=== PATIENT | female | born 1960 | race Caucasian/White ===

== ENCOUNTER 2016-12-07 08:19 | Emergency (ER) | payer OTHER ==
[2016-12-07] MEDS ORDERED: ONDANSETRON 4 MG/2 ML VIAL IVP STA (08:45)
[2016-12-07] MEDS ORDERED: SODIUM CHLORIDE 0.9% 1,000 ML IV STA (08:45)
[2016-12-07] MEDS ORDERED: diphenhydrAMINE 50 MG/ML 1 ML VIAL IVP STA (08:45)
[2016-12-07] MEDS ORDERED: DICYCLOMINE 10 MG/ML 2 ML AMP IM STA (08:45)
[2016-12-07] MEDS ORDERED: ACETAMINOPHEN IV (For NPO) 1,000 MG in EMPTY BAG 1 BAG IVPB ONE (08:45)
[2016-12-07] MEDS ORDERED: RX INFO: IV CONTRAST WAS GIVEN 1 EACH MISC MISCELLANE PRN (08:48)
--- NOTE | 2016-12-07 08:48 | ED ---
General Adult HPI - General Chief complaint: Nausea/Vomiting/Diarrhea Stated complaint: NVD Time Seen by Provider: 12/07/16 08:40 Source: patient, RN notes reviewed Mode of arrival: ambulatory Limitations: no limitations - History of Present Illness Initial comments: 56-year-old female presents to the emergency department with a chief complaint of nausea vomiting and diarrhea. Patient states it started about 8:00 tonight. Patient states that she has had a low-grade fever with it about 100.4 home so she was concerned. Patient states she continues to have nausea vomiting diarrhea and every time she tries to eat or drink anything it just seems to get worse. Patient does admit to some right-sided abdominal pain with this. Patient states that no one else has similar symptoms. Patient states she did eat a salad with chicken last night she does not know if that is what is contributing to it. Patient states she was concerned due to her continued nausea vomiting diarrhea. She thought that she was reevaluated.Patient denies any recent shortness of breath, chest pain, back pain, numbness or tingling, dysuria or hematuria, constipation, headaches or visual changes, or any other current symptoms. - Related Data Previous Rx's Medication Instructions Recorded Dicyclomine [Bentyl] 10 mg PO TID #20 capsule 12/07/16 Ondansetron Odt [Zofran ODT] 4 mg PO Q8HR PRN #20 tab 12/07/16 Allergies Allergy/AdvReac Type Severity Reaction Status Date / Time iodine Allergy Unknown Verified 12/07/16 09:02 diphenhydramine AdvReac Unknown Verified 12/07/16 09:03 [From Benadryl] Review of Systems ROS Statement: Those systems with pertinent positive or pertinent negative responses have been documented in the HPI. ROS Other: All systems not noted in ROS Statement are negative. Past Medical History Additional Past Medical History / Comment(s): endocarditis History of Any Multi-Drug Resistant Organisms: None Reported Past Surgical History: Cholecystectomy Past Psychological History: No Psychological Hx Reported Smoking Status: Never smoker Past Alcohol Use History: Occasional Past Drug Use History: None Reported General Exam - General Exam Comments Initial Comments: General: The patient is awake and alert, in no distress, and does not appear acutely ill. Eye: Pupils are equal, round and reactive to light, extra-ocular movements are intact; there is normal conjunctiva bilaterally. No signs of icterus. Ears, nose, mouth and throat: There are moist mucous membranes and no oral lesions. Neck: The neck is supple, there is no tenderness. Cardiovascular: There is a regular rate and rhythm. No murmur, rub or gallop is appreciated. Respiratory: Lungs are clear to auscultation, respirations are non-labored, breath sounds are equal. No wheezes, stridor, rales, or rhonchi. Gastrointestinal: Soft, non-distended mild tenderness in right lower quadrant of thewithout masses or organomegaly noted. There is no rebound or guarding present. No CVA tenderness. Bowel sounds are unremarkable. Back: There is no tenderness to palpation in the midline. There is no obvious deformity. No rashes noted. Musculoskeletal: Normal ROM, no tenderness, There is no pedal edema. There is no calf tenderness or swelling. Sensation intact. Pulses equal bilaterally 2+. Neurological: CN II-XII intact, There are no obvious motor or sensory deficits. Coordination appears grossly intact. Speech is normal. Skin: Skin is warm and dry and no rashes or lesions are noted. Psychiatric: Cooperative, appropriate mood & affect, normal judgment. Limitations: no limitations Course Vital Signs 12/07/16 08:20 Temperature 100 F H Pulse Rate 95 Respiratory 20 Rate Blood Pressure 130/80 O2 Sat by Pulse 97 Oximetry - Reevaluation(s) Reevaluation #1: 12/07/16 10:42 patient is feeling better at this time. Medical Decision Making - Medical Decision Making 48-year-old female presents emergency department with chief complaint of nausea vomiting diarrhea with right-sided abdominal pain. It is 10 L is reviewed as well as CAT scan. Patient does appear to enteritis. At this time we will start patient on Zofran from his Bentyl. We did discuss Tylenol Motrin. This return parameters and follow-up. Patient stated that she understood and is in agreement plan. All cushions have been answered. She will be discharged. - Lab Data Result diagrams: 12/07/16 08:55 12/07/16 08:55 Lab Results 12/07/16 12/07/16 12/07/16 Range/Units 08:55 08:55 08:55 WBC 3.5 L (3.8-10.6) k/uL RBC 4.35 (3.80-5.40) m/uL Hgb 14.4 (11.4-16.0) gm/dL Hct 42.5 (34.0-46.0) % MCV 97.7 (80.0-100.0) fL MCH 33.1 (25.0-35.0) pg MCHC 33.8 (31.0-37.0) g/dL RDW 12.9 (11.5-15.5) % Plt Count 190 (150-450) k/uL Neutrophils % 78 % Lymphocytes % 10 % Monocytes % 8 % Eosinophils % 1 % Basophils % 0 % Neutrophils # 2.7 (1.3-7.7) k/uL Lymphocytes # 0.4 L (1.0-4.8) k/uL Monocytes # 0.3 (0-1.0) k/uL Eosinophils # 0.0 (0-0.7) k/uL Basophils # 0.0 (0-0.2) k/uL PT (9.0-12.0) sec INR (<1.1) APTT (22.0-30.0) sec Sodium 141 (137-145) mmol/L Potassium 4.2 (3.5-5.1) mmol/L Chloride 104 (98-107) mmol/L Carbon Dioxide 24 (22-30) mmol/L Anion Gap 13 mmol/L BUN 23 H (7-17) mg/dL Creatinine 0.73 (0.52-1.04) mg/dL Est GFR (MDRD) Af Amer >60 (>60 ml/min/1.73 sqM) Est GFR (MDRD) Non-Af >60 (>60 ml/min/1.73 sqM) Glucose 116 H (74-99) mg/dL Plasma Lactic Acid Levi 1.3 (0.7-2.0) mmol/L Calcium 9.4 (8.4-10.2) mg/dL Total Bilirubin 0.7 (0.2-1.3) mg/dL AST 33 (14-36) U/L ALT 39 (9-52) U/L Alkaline Phosphatase 87 (38-126) U/L Total Protein 7.2 (6.3-8.2) g/dL Albumin 4.5 (3.5-5.0) g/dL Amylase 56 (30-110) U/L Lipase 111 (23-300) U/L Urine Color Urine Appearance (Clear) Urine pH (5.0-8.0) Ur Specific Keene (1.001-1.035) Urine Protein (Negative) Urine Glucose (UA) (Negative) Urine Ketones (Negative) Urine Blood (Negative) Urine Nitrite (Negative) Urine Bilirubin (Negative) Urine Urobilinogen (<2.0) mg/dL Ur Leukocyte Esterase (Negative) 12/07/16 12/07/16 Range/Units 08:55 08:55 WBC (3.8-10.6) k/uL RBC (3.80-5.40) m/uL Hgb (11.4-16.0) gm/dL Hct (34.0-46.0) % MCV (80.0-100.0) fL MCH (25.0-35.0) pg MCHC (31.0-37.0) g/dL RDW (11.5-15.5) % Plt Count (150-450) k/uL Neutrophils % % Lymphocytes % % Monocytes % % Eosinophils % % Basophils % % Neutrophils # (1.3-7.7) k/uL Lymphocytes # (1.0-4.8) k/uL Monocytes # (0-1.0) k/uL Eosinophils # (0-0.7) k/uL Basophils # (0-0.2) k/uL PT 10.4 (9.0-12.0) sec INR 1.0 (<1.1) APTT 22.0 (22.0-30.0) sec Sodium (137-145) mmol/L Potassium (3.5-5.1) mmol/L Chloride (98-107) mmol/L Carbon Dioxide (22-30) mmol/L Anion Gap mmol/L BUN (7-17) mg/dL Creatinine (0.52-1.04) mg/dL Est GFR (MDRD) Af Amer (>60 ml/min/1.73 sqM) Est GFR (MDRD) Non-Af (>60 ml/min/1.73 sqM) Glucose (74-99) mg/dL Plasma Lactic Acid Levi (0.7-2.0) mmol/L Calcium (8.4-10.2) mg/dL Total Bilirubin (0.2-1.3) mg/dL AST (14-36) U/L ALT (9-52) U/L Alkaline Phosphatase (38-126) U/L Total Protein (6.3-8.2) g/dL Albumin (3.5-5.0) g/dL Amylase (30-110) U/L Lipase (23-300) U/L Urine Color Yellow Urine Appearance Clear (Clear) Urine pH 6.5 (5.0-8.0) Ur Specific [place] 1.021 (1.001-1.035) Urine Protein Trace H (Negative) Urine Glucose (UA) Negative (Negative) Urine Ketones Negative (Negative) Urine Blood Negative (Negative) Urine Nitrite Negative (Negative) Urine Bilirubin Negative (Negative) Urine Urobilinogen <2.0 (<2.0) mg/dL Ur Leukocyte Esterase Negative (Negative) Disposition Clinical Impression: Enteritis Disposition: HOME SELF-CARE Condition: Stable Instructions: Acute Nausea and Vomiting (ED) Additional Instructions: Please use medication as discussed. Please follow up with family doctor if symptoms have not improved over the next two days. Please return to the emergency room if your symptoms increase or worsen or for any other concerns. Prescriptions: Dicyclomine [Bentyl] 10 mg PO TID #20 capsule Ondansetron Odt [Zofran ODT] 4 mg PO Q8HR PRN #20 tab PRN Reason: Nausea Referrals: Reji Reed MD [Primary Care Provider] - 1-2 days Time of Disposition: 10:42
[2016-12-07 09:22] LABS: Appearance,Urine Clear (Clear); Bilirubin,Urine Negative (Negative); Glucose,Urine (UA) Negative (Negative); Ketones,Urine Negative (Negative); Leukocyte Esterase,Urine Negative (Negative); Nitrite,Urine Negative (Negative); PH, Urine 6.5 (5.0-8.0); Protein,Urine Trace (Negative); Specific Gravity,Urine 1.021 (1.001-1.035); UA Billing (MACRO vs. MICRO) CHEM; Urobilinogen,Urine <2.0 mg/dL (<2.0)
[2016-12-07 09:29] LABS: ALT 39 U/L (9-52); AST 33 U/L (14-36); Alkaline Phosphatase 87 U/L (38-126); Amylase 56 U/L (30-110); Anion Gap 13 mmol/L; Blood Urea Nitrogen 23 mg/dL (7-17); Calcium 9.4 mg/dL (8.4-10.2); Carbon Dioxide 24 mmol/L (22-30); Chloride 104 mmol/L (98-107); Glucose 116 mg/dL (74-99); Non-African American GFR(MDRD) >60 (>60 ml/min/1.73 sqM); Potassium 4.2 mmol/L (3.5-5.1); Sodium 141 mmol/L (137-145); Total Bilirubin 0.7 mg/dL (0.2-1.3); Total Protein 7.2 g/dL (6.3-8.2)
[2016-12-07 09:30] LABS: Basophils % (A) 0 %; CH 33.6; CHCM 34.6; Eosinophils % (A) 1 %; HCT 42.5 % (34.0-46.0); HDW 2.39; HGB 14.4 gm/dL (11.4-16.0); Luc # (Auto) 0.11; Luc % (Auto) 3; Lymphocytes # (A) 0.4 k/uL (1.0-4.8); Lymphocytes % (A) 10 %; MCH 33.1 pg (25.0-35.0); MCHC 33.8 g/dL (31.0-37.0); MCV 97.7 fL (80.0-100.0); Mean Platelet Volume 7.3; Monocytes # (A) 0.3 k/uL (0-1.0); Monocytes % (A) 8 %; Neutrophils # (A) 2.7 k/uL (1.3-7.7); Neutrophils % (A) 78 %; RBC 4.35 m/uL (3.80-5.40); RDW 12.9 % (11.5-15.5); WBC 3.5 k/uL (3.8-10.6); WBC (Perox) 3.66
[2016-12-07 09:37] LABS: Prothrombin Time 10.4 sec (9.0-12.0)
--- NOTE | 2016-12-07 10:29 | CT ---
EXAMINATION TYPE: CT abdomen pelvis wo con DATE OF EXAM: 12/07/2016 10:13 AM COMPARISON: NONE HISTORY: Nausea, Vomiting and Diarrhea with cramping CT DLP: 396.60 mGycm Automated exposure control for dose reduction was used. TECHNIQUE: Helical acquisition of images from the lung bases through the pelvis. FINDINGS: LUNG BASES: No significant abnormality is appreciated. AORTA: No significant abnormality is appreciated. LIVER/GB: Patient is status post cholecystectomy. Liver shows no mass. PANCREAS: No significant abnormality is seen. SPLEEN: No significant abnormality is seen. ADRENALS: No significant abnormality is seen. KIDNEYS: No significant abnormality is seen. REPRODUCTIVE ORGANS: No significant abnormality is seen. URINARY BLADDER: No significant abnormality is seen. BOWEL: There are fluid-filled loops of small bowel. No evident bowel obstruction. Patient is post ap pendectomy. Small hiatal hernia is suspected. FREE AIR: No Free Air is visible. ASCITES: None visible. PELVIC ADENOPATHY: None visualized. RETROPERITONEAL ADENOPATHY: No Retroperitoneal Adenopathy visible. OSSEOUS STRUCTURES: No significant abnormality is seen. IMPRESSION: CORRELATE FOR ENTERITIS. Noncontrast exam, follow-up as indicated.
[2016-12-07 10:53] VITALS: BP 99/52; PULSE 74; RESP 18; TEMP 99.5
== END 2016-12-07 10:53 | disposition home or self-care (01) ==
LOC: EC 08:19
DX: K52.9 Noninfective gastroenteritis and colitis, unspecified (principal); Z90.49 Acquired absence of other specified parts of digestive tract; Z91.09 Other allergy status, other than to drugs and biological substances; Z88.8 Allergy status to other drugs, medicaments and biological substances
CPT/HCPCS: 99284 ×2; 96374 ×2; 96375 ×2; 96361 ×2; 96372 ×2; 36415; 80053; 82150; 83605; 83690; 85025; 85610; 85730; 81003; 87040; 87086; 74176; J0500; J2405; J0131

== ENCOUNTER 2018-10-06 07:04 | Emergency (ER) | payer OTHER ==
[2018-10-06 07:09] VITALS: RESP 18
[2018-10-06] MEDS ORDERED: SODIUM CHLORIDE 0.9% 1,000 ML IV STA (07:24)
[2018-10-06] MEDS ORDERED: IPRATROPIUM-ALBUTEROL 3 ML NEB INHALATION STA (07:24)
[2018-10-06] MEDS ORDERED: methylPREDNISolone SOD SUCCI 125 MG/2 ML VIAL IV STA (07:25)
--- NOTE | 2018-10-06 07:29 | ED ---
URI HPI - General Chief Complaint: Upper Respiratory Infection Stated Complaint: URI Time Seen by Provider: 10/06/18 07:15 Source: patient, RN notes reviewed Mode of arrival: ambulatory Limitations: no limitations - History of Present Illness Initial Comments: This is a 58-year-old female history of endocarditis the past but no known history of COPD and asthma or emphysema who states that she had the onset over last 3-5 days of cough or congestion fever 101 some rhinorrhea. She states she has similar episode over the holiday she had be treated with an inhaler steroids and Zithromax and Tessalon Perles which should help get better. She states this feels similar to what that was light. No overt chest pain palpitations or other symptoms. She does cough it's a whitish colored phlegm. She also has occasional dizziness with certain movements. She is concerned because of the prior history of endocarditis. MD Complaint: fever, cough, nasal congestion - Related Data Home Medications Medication Instructions Recorded Confirmed Atorvastatin [Lipitor] 20 mg PO DAILY 05/12/18 10/06/18 Nadolol [Corgard] 20 mg PO DAILY 05/12/18 10/06/18 PARoxetine HCL 20 mg PO DAILY 05/12/18 10/06/18 Aspirin EC [Ecotrin Low Dose] 81 mg PO DAILY 10/06/18 10/06/18 Previous Rx's Medication Instructions Recorded Amoxicillin/Potassium Clav 1 tab PO Q12HR #20 tab 10/06/18 [Augmentin 875-125 Tablet] predniSONE 20 mg PO BID #10 tab 10/06/18 Allergies Allergy/AdvReac Type Severity Reaction Status Date / Time iodine Allergy Rash/Hives Verified 10/06/18 07:44 diphenhydramine AdvReac VERY Verified 10/06/18 07:44 [From Benadryl] HYPERACTIVE Review of Systems ROS Statement: Those systems with pertinent positive or pertinent negative responses have been documented in the HPI. ROS Other: All systems not noted in ROS Statement are negative. Past Medical History Past Medical History: Hyperlipidemia Additional Past Medical History / Comment(s): endocarditis. HX PVC'S History of Any Multi-Drug Resistant Organisms: None Reported Past Surgical History: Breast Surgery, Cholecystectomy, Tonsillectomy Additional Past Surgical History / Comment(s): FACE LIFT 01/27/2018. COLONOSCOPY. BILAT BREAST BX-NEG Past Anesthesia/Blood Transfusion Reactions: No Reported Reaction Past Psychological History: Depression Smoking Status: Never smoker Past Alcohol Use History: Daily - Past Family History Mother Family Medical History: Cancer, Deep Vein Thrombosis (DVT) General Exam - General Exam Comments Initial Comments: This is a well-developed well-nourished awake alert oriented 3 female Limitations: no limitations General appearance: alert, in no apparent distress Head exam: Present: atraumatic, normocephalic, normal inspection Eye exam: Present: normal appearance, PERRL, EOMI. Absent: scleral icterus, conjunctival injection, periorbital swelling ENT exam: Present: mucous membranes moist, other (Boggy swollen nasal mucosa TMs are intact within normal limits no pharyngeal erythema or exudates) Neck exam: Present: normal inspection, full ROM, other (No stridor JVD or bruits ). Absent: tenderness, meningismus, lymphadenopathy Respiratory exam: Present: respiratory distress. Absent: wheezes, rales, rhonchi, stridor Cardiovascular Exam: Present: regular rate, normal rhythm, normal heart sounds. Absent: systolic murmur, diastolic murmur, rubs, gallop, clicks GI/Abdominal exam: Present: soft, normal bowel sounds. Absent: distended, tenderness, guarding, rebound, rigid Extremities exam: Present: normal inspection, full ROM, normal capillary refill. Absent: tenderness, pedal edema, joint swelling, calf tenderness Back exam: Present: normal inspection Neurological exam: Present: alert, oriented X3, CN II-XII intact Psychiatric exam: Present: normal affect, normal mood Skin exam: Present: warm, dry, intact, normal color. Absent: rash Course Vital Signs 10/06/18 10/06/18 10/06/18 07:07 07:37 07:47 Temperature 100.6 F H Pulse Rate 100 87 88 Respiratory 18 Rate Blood Pressure 143/83 O2 Sat by Pulse 97 Oximetry 10/06/18 08:00 Temperature Pulse Rate 87 Respiratory 18 Rate Blood Pressure 113/78 O2 Sat by Pulse 96 Oximetry Medical Decision Making - Medical Decision Making I did discuss findings with the patient the presentation consistent with a rhinosinusitis she does have a fever. Due to the PVCs history and current symptoms and the apparent length of time this is been going on for the patient will be placed on antibiotics as well as oral steroids. She does feel better after the last treatment she does have an inhaler at home. - Lab Data Result diagrams: 10/06/18 07:46 10/06/18 07:46 Lab Results 10/06/18 10/06/18 10/06/18 Range/Units 07:46 07:46 07:46 WBC 5.6 (3.8-10.6) k/uL RBC 4.19 (3.80-5.40) m/uL Hgb 14.0 (11.4-16.0) gm/dL Hct 41.6 (34.0-46.0) % MCV 99.2 (80.0-100.0) fL MCH 33.4 (25.0-35.0) pg MCHC 33.6 (31.0-37.0) g/dL RDW 13.1 (11.5-15.5) % Plt Count 184 (150-450) k/uL Neutrophils % 80 % Lymphocytes % 7 % Monocytes % 9 % Eosinophils % 2 % Basophils % 0 % Neutrophils # 4.4 (1.3-7.7) k/uL Lymphocytes # 0.4 L (1.0-4.8) k/uL Monocytes # 0.5 (0-1.0) k/uL Eosinophils # 0.1 (0-0.7) k/uL Basophils # 0.0 (0-0.2) k/uL PT (9.0-12.0) sec INR (<1.2) APTT (22.0-30.0) sec Sodium 139 (137-145) mmol/L Potassium 4.3 (3.5-5.1) mmol/L Chloride 107 (98-107) mmol/L Carbon Dioxide 20 L (22-30) mmol/L Anion Gap 12 mmol/L BUN 18 H (7-17) mg/dL Creatinine 0.72 (0.52-1.04) mg/dL Est GFR (CKD-EPI)AfAm >90 (>60 ml/min/1.73 sqM) Est GFR (CKD-EPI)NonAf >90 (>60 ml/min/1.73 sqM) Glucose 119 H (74-99) mg/dL Calcium 9.1 (8.4-10.2) mg/dL Magnesium 1.8 (1.6-2.3) mg/dL Total Bilirubin 0.5 (0.2-1.3) mg/dL AST 26 (14-36) U/L ALT 20 (9-52) U/L Alkaline Phosphatase 73 (38-126) U/L Total Creatine Kinase 78 (30-135) U/L CK-MB (CK-2) 0.5 (0.0-2.4) ng/mL CK-MB (CK-2) Rel Index 0.6 Troponin I <0.012 (0.000-0.034) ng/mL NT-Pro-B Natriuret Pep pg/mL Total Protein 7.0 (6.3-8.2) g/dL Albumin 4.3 (3.5-5.0) g/dL Influenza Type A RNA (Not Detectd) Influenza Type B (PCR) (Not Detectd) 10/06/18 10/06/18 10/06/18 Range/Units 07:46 07:46 07:46 WBC (3.8-10.6) k/uL RBC (3.80-5.40) m/uL Hgb (11.4-16.0) gm/dL Hct (34.0-46.0) % MCV (80.0-100.0) fL MCH (25.0-35.0) pg MCHC (31.0-37.0) g/dL RDW (11.5-15.5) % Plt Count (150-450) k/uL Neutrophils % % Lymphocytes % % Monocytes % % Eosinophils % % Basophils % % Neutrophils # (1.3-7.7) k/uL Lymphocytes # (1.0-4.8) k/uL Monocytes # (0-1.0) k/uL Eosinophils # (0-0.7) k/uL Basophils # (0-0.2) k/uL PT 10.1 (9.0-12.0) sec INR 0.9 (<1.2) APTT 24.0 (22.0-30.0) sec Sodium (137-145) mmol/L Potassium (3.5-5.1) mmol/L Chloride (98-107) mmol/L Carbon Dioxide (22-30) mmol/L Anion Gap mmol/L BUN (7-17) mg/dL Creatinine (0.52-1.04) mg/dL Est GFR (CKD-EPI)AfAm (>60 ml/min/1.73 sqM) Est GFR (CKD-EPI)NonAf (>60 ml/min/1.73 sqM) Glucose (74-99) mg/dL Calcium (8.4-10.2) mg/dL Magnesium (1.6-2.3) mg/dL Total Bilirubin (0.2-1.3) mg/dL AST (14-36) U/L ALT (9-52) U/L Alkaline Phosphatase (38-126) U/L Total Creatine Kinase (30-135) U/L CK-MB (CK-2) (0.0-2.4) ng/mL CK-MB (CK-2) Rel Index Troponin I (0.000-0.034) ng/mL NT-Pro-B Natriuret Pep 282 pg/mL Total Protein (6.3-8.2) g/dL Albumin (3.5-5.0) g/dL Influenza Type A RNA Not Detected (Not Detectd) Influenza Type B (PCR) Not Detected (Not Detectd) - Radiology Data Radiology results: report reviewed (I did review the imaging and report no acute findings), image reviewed Disposition Clinical Impression: Acute rhinosinusitis, Acute bronchospasm, Febrile illness, acute Disposition: HOME SELF-CARE Condition: Good Instructions: Rhinosinusitis (ED), Bronchospasm (ED), Fever in Adults (ED) Prescriptions: Amoxicillin/Potassium Clav [Augmentin 875-125 Tablet] 1 tab PO Q12HR #20 tab predniSONE 20 mg PO BID #10 tab Is patient prescribed a controlled substance at d/c from ED?: No Referrals: Reji Reed MD [Primary Care Provider] - 1-2 days
[2018-10-06] MEDS ORDERED: ACETAMINOPHEN TAB 500 MG TAB PO STA (07:52)
[2018-10-06 08:02] LABS: Basophils % (A) 0 %; Eosinophils # (A) 0.1 k/uL (0-0.7); Eosinophils % (A) 2 %; HCT 41.6 % (34.0-46.0); Lymphocytes # (A) 0.4 k/uL (1.0-4.8); Lymphocytes % (A) 7 %; MCH 33.4 pg (25.0-35.0); MCHC 33.6 g/dL (31.0-37.0); MCV 99.2 fL (80.0-100.0); Mean Platelet Volume 6.7; Monocytes # (A) 0.5 k/uL (0-1.0); Monocytes % (A) 9 %; Neutrophils # (A) 4.4 k/uL (1.3-7.7); Neutrophils % (A) 80 %; Platelet Count 184 k/uL (150-450); RBC 4.19 m/uL (3.80-5.40); RDW 13.1 % (11.5-15.5); WBC 5.6 k/uL (3.8-10.6)
[2018-10-06 08:10] LABS: INR 0.9 (<1.2); Prothrombin Time 10.1 sec (9.0-12.0)
--- NOTE | 2018-10-06 08:10 | XR ---
EXAMINATION TYPE: XR chest 2V DATE OF EXAM: 10/06/2018 COMPARISON: None INDICATION: Difficulty breathing cough congestion fever TECHNIQUE: Frontal and lateral views of the chest are obtained. FINDINGS: The heart size is normal. The pulmonary vasculature is normal. The lungs are clear. IMPRESSION: 1. No acute pulmonary process.
[2018-10-06 08:12] LABS: ALT 20 U/L (9-52); AST 26 U/L (14-36); Albumin 4.3 g/dL (3.5-5.0); Alkaline Phosphatase 73 U/L (38-126); Anion Gap 12 mmol/L; Blood Urea Nitrogen 18 mg/dL (7-17); Calcium 9.1 mg/dL (8.4-10.2); Carbon Dioxide 20 mmol/L (22-30); Chloride 107 mmol/L (98-107); Glucose 119 mg/dL (74-99); Magnesium 1.8 mg/dL (1.6-2.3); Potassium 4.3 mmol/L (3.5-5.1); Sodium 139 mmol/L (137-145); Total Bilirubin 0.5 mg/dL (0.2-1.3)
[2018-10-06 08:22] LABS: Creatine Kinase 78 U/L (30-135)
[2018-10-06 08:35] LABS: Creatine Kinase MB 0.5 ng/mL (0.0-2.4); Troponin I <0.012 ng/mL (0.000-0.034)
[2018-10-06] MEDS ORDERED: AMOXIC-POT CLAV 875MG STARTER 2 EACH TABLET PO STA (08:58)
[2018-10-06 09:13] VITALS: BP 129/74; PULSE 84; TEMP 99.4
== END 2018-10-06 09:12 | disposition home or self-care (01) ==
LOC: EC 07:04
DX: J01.90 Acute sinusitis, unspecified (principal); J98.01 Acute bronchospasm; E78.5 Hyperlipidemia, unspecified; F32.9 Major depressive disorder, single episode, unspecified; Z86.79 Personal history of other diseases of the circulatory system; Z90.49 Acquired absence of other specified parts of digestive tract; Z98.890 Other specified postprocedural states; Z79.82 Long term (current) use of aspirin; Z79.899 Other long term (current) drug therapy; Z88.8 Allergy status to other drugs, medicaments and biological substances; Z91.048 Other nonmedicinal substance allergy status
CPT/HCPCS: 36415; 94640; 93005; 83880; 80053; 82550; 82553; 83735; 84484; 85025; 85610; 85730; 87502; 71046; 99284; 96374; J2930

== ENCOUNTER → 2021-04-02 | Outpatient (CLI) | payer OTHER ==
--- NOTE | 2021-04-03 09:10 | MM ---
Reason for exam: screening (asymptomatic). Last mammogram was performed 2 years and 10 months ago. History: Patient is postmenopausal. Benign excisional biopsy of the left breast, 2004. Benign excisional biopsy of the right breast, 2002. Physical Findings: A clinical breast exam by your physician is recommended on an annual basis and results should be correlated with mammographic findings. MG 3D Screening Mammo W/Cad Bilateral CC and MLO view(s) were taken. Prior study comparison: May 28, 2018, bilateral MG 3d screening mammo w/cad. December 08, 2014, bilateral MG screening mammo w CAD. The breast tissue is heterogeneously dense. This may lower the sensitivity of mammography. There is no discrete abnormality. No significant changes when compared with prior studies. ASSESSMENT: Negative, BI-RAD 1 RECOMMENDATION: Routine screening mammogram of both breasts in 1 year.
== END | disposition home or self-care (01) ==
LOC: RADMAMWWP 09:22
PROVIDERS: ATTEND Obstetrics & Gynecology
DX: Z12.31 Encounter for screening mammogram for malignant neoplasm of breast (principal); Z78.0 Asymptomatic menopausal state
CPT/HCPCS: 77063; 77067

== ENCOUNTER 2021-06-13 15:34 | Emergency (ER) | payer OTHER ==
[2021-06-13 15:46] VITALS: RESP 18
--- NOTE | 2021-06-13 17:02 | ED ---
Skin/Abscess/FB HPI - General Chief complaint: Skin/Abscess/Foreign Body Stated complaint: hemorrhoid Time Seen by Provider: 06/13/21 16:04 Source: patient Mode of arrival: ambulatory Limitations: no limitations - History of Present Illness Initial comments: Patient is a 61-year-old female presenting to the emergency department with concerns over a worsening hemorrhoid. Patient states she doesn't history of hemorrhoids but is concerned this may be thrombosed. She does have history of one thrombosed hemorrhoid in her past, did burst spontaneously and she's never had a difficulties with it. She states over the last 3 days she noticed increased pressure, discomfort to the area. She has been trying warm baths and steroid cream, only some mild improvement in her symptoms. She denies any fevers or chills, no nausea or vomiting. She has no further complaints today. - Related Data Home Medications Medication Instructions Recorded Confirmed Atorvastatin [Lipitor] 20 mg PO DAILY 05/12/18 06/13/21 PARoxetine HCL 20 mg PO DAILY 05/12/18 06/13/21 nadoloL [Corgard] 20 mg PO DAILY 05/12/18 06/13/21 Omeprazole Magnesium [PriLOSEC OTC] 20 mg PO DAILY 06/13/21 06/13/21 Previous Rx's Medication Instructions Recorded Hydrocortisone Cream 1 applic RECTAL BID #28 gm 06/13/21 [Hydrocortisone 2.5% Cream] Allergies Allergy/AdvReac Type Severity Reaction Status Date / Time iodine Allergy Rash/Hives Verified 06/13/21 16:41 diphenhydramine AdvReac VERY Verified 06/13/21 16:41 [From Benadryl] HYPERACTIVE Review of Systems ROS Statement: Those systems with pertinent positive or pertinent negative responses have been documented in the HPI. ROS Other: All systems not noted in ROS Statement are negative. Past Medical History Past Medical History: Hyperlipidemia Additional Past Medical History / Comment(s): endocarditis x2. HX PVC'S History of Any Multi-Drug Resistant Organisms: None Reported Past Surgical History: Breast Surgery, Cholecystectomy, Tonsillectomy Additional Past Surgical History / Comment(s): FACE LIFT 01/27/2018. COLONOSCOPY. BILAT BREAST BX-NEG Past Anesthesia/Blood Transfusion Reactions: No Reported Reaction Past Psychological History: Depression Smoking Status: Never smoker Past Alcohol Use History: Occasional Past Drug Use History: None Reported - Past Family History Mother Family Medical History: Cancer, Deep Vein Thrombosis (DVT) General Exam - General Exam Comments Initial Comments: GENERAL: Patient is well-developed and well-nourished. Patient is nontoxic and in no acute distress. HEAD: Atraumatic, normocephalic. EYES: Pupils equal round and reactive to light, extraocular movements intact, sclera anicteric, conjunctiva are normal. Eyelids were unremarkable. LUNGS: Unlabored respirations. Breath sounds clear to auscultation bilaterally and equal. No wheezes rales or rhonchi. HEART: Regular rate and rhythm without murmurs, rubs or gallops. ABDOMEN: Soft, nontender, normoactive bowel sounds. No guarding, no rebound. No masses appreciated. : Deferred MUSCULOSKELETAL: Normal extremities with adequate strength and normal range of motion, no pitting or edema. No clubbing or cyanosis. SKIN: Warm, Dry, normal turgor, no rashes or lesions noted. Limitations: no limitations Rectal exam: Present: hemorrhoids (1 large external hemorrhoid noticed, this is not appear thrombosed at this time.) Course Vital Signs 06/13/21 06/13/21 15:43 17:07 Temperature 98.2 F 97.8 F Pulse Rate 95 92 Respiratory 18 18 Rate Blood Pressure 144/79 136/77 O2 Sat by Pulse 98 98 Oximetry Medical Decision Making - Medical Decision Making patient is a 61-year-old female here with an external hemorrhoid that has been painful over the last 3 days. She would have concerns at this is thrombosed. Upon exam, this is not appear thrombosed at this time. I did recommend topical steroid cream which I will prescribe. She will follow-up with her doctor. She is in agreement with this plan of care. Return parameters were discussed with her and she verbalized understanding. Case discussed with Dr. Bellamy. Disposition Clinical Impression: External hemorrhoid Disposition: HOME SELF-CARE Condition: Stable Instructions (If sedation given, give patient instructions): Hemorrhoids (ED) Additional Instructions: Please return to the Emergency Department if symptoms worsen or any other concerns. Recommend steroids as prescribed. Please follow-up with your primary care. Prescriptions: Hydrocortisone Cream [Hydrocortisone 2.5% Cream] 1 applic RECTAL BID #28 gm Is patient prescribed a controlled substance at d/c from ED?: No Referrals: Alyse Hitchcock MD [Primary Care Provider] - 1-2 days Time of Disposition: 17:02
[2021-06-13 17:08] VITALS: BP 136/77; PULSE 92; TEMP 97.8
== END 2021-06-13 17:07 | disposition home or self-care (01) ==
LOC: EC 15:34
DX: K64.4 Residual hemorrhoidal skin tags (principal); E78.5 Hyperlipidemia, unspecified; F32.9 Major depressive disorder, single episode, unspecified; Z79.899 Other long term (current) drug therapy; Z88.8 Allergy status to other drugs, medicaments and biological substances; Z90.49 Acquired absence of other specified parts of digestive tract
CPT/HCPCS: 99282

== ENCOUNTER → 2021-09-03 | Outpatient (CLI) | payer OTHER ==
[2021-09-03 19:29] LABS: ALT 18 U/L (8-44); AST 20 U/L (13-35); African American GFR (CKD) 106.9 (60.0-200.0); Albumin 4.5 g/dL (3.8-4.9); Albumin/Globulin Ratio 2.14 (1.60-3.17); Alkaline Phosphatase 86 U/L (41-126); BUN/Creat Ratio 26.86 Ratio (12.00-20.00); Blood Urea Nitrogen 18.8 mg/dL (9.0-27.0); Calcium 9.3 mg/dL (8.7-10.3); Carbon Dioxide 19.3 mmol/L (20.0-27.5); Chloride 106 mmol/L (96-109); Chol/HDL Ratio 3.01 Ratio; Globulin 2.1 g/dL (1.6-3.3); Glucose 106 mg/dL (70-110); LDL Cholesterol,Calculated 97.4 mg/dL (0.0-131.0); Non-African American GFR(CKD) 92.2 (60.0-200.0); Potassium 4.4 mmol/L (3.5-5.5); Sodium 141 mmol/L (135-145); Total Protein 6.6 g/dL (6.2-8.2)
== END | disposition home or self-care (01) ==
LOC: LABWHC1 10:11
PROVIDERS: ATTEND Nurse Practitioner Adult Health
DX: E78.2 Mixed hyperlipidemia (principal)
CPT/HCPCS: 36415; 80053; 80061

== ENCOUNTER → 2022-12-31 | Outpatient (CLI) | payer OTHER ==
[2022-12-31 15:56] LABS: ALT 29 U/L (8-44); AST 27 U/L (13-35); African American GFR (CKD) 97.6 (60.0-200.0); Albumin 4.6 g/dL (3.8-4.9); Albumin/Globulin Ratio 2.01 (1.60-3.17); Alkaline Phosphatase 101 U/L (41-126); BUN/Creat Ratio 24.53 Ratio (12.00-20.00); Blood Urea Nitrogen 18.4 mg/dL (9.0-27.0); Calcium 9.7 mg/dL (8.7-10.3); Carbon Dioxide 23.3 mmol/L (20.0-27.5); Chloride 104 mmol/L (96-109); Chol/HDL Ratio 3.56 Ratio; Globulin 2.3 g/dL (1.6-3.3); Glucose 119 mg/dL (70-110); LDL Cholesterol,Calculated 123.5 mg/dL (0.0-131.0); Non-African American GFR(CKD) 84.2 (60.0-200.0); Potassium 4.5 mmol/L (3.5-5.5); Sodium 141 mmol/L (135-145); Total Protein 6.9 g/dL (6.2-8.2)
== END | disposition home or self-care (01) ==
LOC: LABWHC1 09:10
PROVIDERS: ATTEND Internal Medicine Interventional Cardiology
DX: I49.3 Ventricular premature depolarization (principal); E78.2 Mixed hyperlipidemia
CPT/HCPCS: 36415; 80053; 80061

== ENCOUNTER → 2023-01-06 | Outpatient (CLI) | payer OTHER ==
--- NOTE | 2023-01-07 14:42 | MM ---
Reason for Exam: Screening (asymptomatic). Last mammogram was performed 1 year(s) and 9 month(s) ago. Patient History: Menarche at age 9. First Full-Term at age 22. Postmenopausal. 2004, Benign Excisional Biopsy on the left side. 2002, Benign Excisional Biopsy on the right side. Risk Values: Miranda 5 year model risk: 2.4%. NCI Lifetime model risk: 9.4%. Prior Study Comparison: 12/08/2014 Bilateral Screening Mammogram, [facility]. 05/28/2018 Bilateral Screening Mammogram, [facility]. 04/02/2021 Bilateral Screening Mammogram, [facility]. Tissue Density: There are scattered fibroglandular densities. Findings: Analyzed By CAD. Appears stable. No significant interval change is evident. Focal asymmetries in the lower left breast, stable No suspicious groups of microcalcifications, spiculated or lobular masses, architectural distortion or other secondary signs of malignancy are mammographically apparent. Overall Assessment: Benign, BI-RAD 2 Management: Screening Mammogram of both breasts in 1 year. A negative mammogram report should not preclude additional follow up of suspicious palpable abnormalities. Patient should continue monthly self breast exam. A clinical breast exam by your physician is recommended on an annual basis and results should be correlated with mammographic findings. Electronically signed and approved by: Jairo Moncada D.O. Radiologis
== END | disposition home or self-care (01) ==
LOC: RADMAMWWP 11:52
PROVIDERS: ATTEND Obstetrics & Gynecology
DX: Z12.31 Encounter for screening mammogram for malignant neoplasm of breast (principal); Z78.0 Asymptomatic menopausal state
CPT/HCPCS: 77063; 77067

== ENCOUNTER 2023-01-09 07:18 | Emergency (ER) | payer OTHER ==
[2023-01-09] MEDS ORDERED: ALPRAZolam 0.5 MG TAB PO STA (07:50)
--- NOTE | 2023-01-09 08:08 | ED ---
General Adult HPI - General Source: patient, RN notes reviewed, old records reviewed Mode of arrival: ambulatory Limitations: no limitations <Asaf Serna - Last Filed: 01/09/23 08:07> <Rafi Duggan - Last Filed: 01/09/23 08:16> - General Chief complaint: Anxiety Stated complaint: Anxiety Time Seen by Provider: 01/09/23 07:30 - History of Present Illness Initial comments: This a 62-year-old female presents emergency department with past medical history significant for anxiety. Patient was on Paxil for years and she stopped about a year ago. Patient states about 2 months ago she started having symptoms again and was having difficulty getting Paxil prescription. 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 Patient denies any difficulty breathing or chest pain. Patient denies any palpitation. Patient has any fever chills or cough. (Asaf Serna) - Related Data Home Medications Medication Instructions Recorded Confirmed Atorvastatin [Lipitor] 20 mg PO DAILY 05/12/18 06/13/21 PARoxetine HCL 20 mg PO DAILY 05/12/18 06/13/21 nadoloL [Corgard] 20 mg PO DAILY 05/12/18 06/13/21 Omeprazole Magnesium [PriLOSEC OTC] 20 mg PO DAILY 06/13/21 06/13/21 Previous Rx's Medication Instructions Recorded Hydrocortisone Cream 1 applic RECTAL BID #28 gm 06/13/21 [Hydrocortisone 2.5% Cream] ALPRAZolam [Xanax] 0.25 mg PO HS PRN 3 Days #12 tab 01/09/23 ALPRAZolam [Xanax] 0.25 mg PO HS PRN 3 Days #12 tab 01/09/23 Allergies Allergy/AdvReac Type Severity Reaction Status Date / Time iodine Allergy Rash/Hives Verified 01/09/23 07:33 diphenhydramine AdvReac VERY Verified 01/09/23 07:33 [From Benadryl] HYPERACTIVE Review of Systems ROS Other: All systems not noted in ROS Statement are negative. <Asaf Serna - Last Filed: 01/09/23 08:07> ROS Other: All systems not noted in ROS Statement are negative. <UrbanRafi - Last Filed: 01/09/23 08:16> ROS Statement: Those systems with pertinent positive or pertinent negative responses have been documented in the HPI. Past Medical History Past Medical History: Hyperlipidemia Additional Past Medical History / Comment(s): endocarditis x2. HX PVC'S History of Any Multi-Drug Resistant Organisms: None Reported Past Surgical History: Breast Surgery, Cholecystectomy, Tonsillectomy Additional Past Surgical History / Comment(s): FACE LIFT 01/27/2018. COLONOSCOPY. BILAT BREAST BX-NEG Past Anesthesia/Blood Transfusion Reactions: No Reported Reaction Past Psychological History: Anxiety, Depression Smoking Status: Never smoker Past Alcohol Use History: Occasional Past Drug Use History: None Reported - Past Family History Mother Family Medical History: Cancer, Deep Vein Thrombosis (DVT) <Asaf Serna - Last Filed: 01/09/23 08:07> General Exam Limitations: no limitations <Asaf Serna - Last Filed: 01/09/23 08:07> - General Exam Comments Initial Comments: GENERAL: Patient is well-developed and well-nourished. Patient is nontoxic and well- hydrated and is in no acute distress. ENT: Neck is soft and supple. No significant lymphadenopathy is noted. Oropharynx is clear. Moist mucous membranes. Neck has full range of motion without eliciting any pain. EYES: The sclera were anicteric and conjunctiva were pink and moist. Extraocular movements were intact and pupils were equal round and reactive to light. Eyelids were unremarkable. PULMONARY: Unlabored respirations. Good breath sounds bilaterally. No audible rales rhonchi or wheezing was noted. CARDIOVASCULAR: There is a regular rate and rhythm without any murmurs gallops or rubs. F ABDOMEN: Soft and nontender with normal bowel sounds. SKIN: Skin is clear with no lesions or rashes and otherwise unremarkable. NEUROLOGIC: Patient is alert and oriented x3. Cranial nerves II through XII are grossly intact. Motor and sensory are also intact. Normal speech, volume and content. Symmetrical smile. MUSCULOSKELETAL: Normal extremities with adequate strength and full range of motion. No lower extremity swelling or edema. No calf tenderness. LYMPHATICS: No significant lymphadenopathy is noted PSYCHIATRIC: Mildly anxious (Asaf Serna) Course Vital Signs 04/21/23 04/21/23 07:31 07:41 Temperature 98 F 98.0 F Pulse Rate 88 84 Respiratory 18 20 Rate Blood Pressure 157/74 182/97 O2 Sat by Pulse 100 98 Oximetry Disposition Is patient prescribed a controlled substance at d/c from ED?: Yes Time of Disposition: 08:08 <Asaf Serna - Last Filed: 01/09/23 08:07> <Rafi Duggan - Last Filed: 01/09/23 08:16> Clinical Impression: Acute anxiety Disposition: HOME SELF-CARE Instructions (If sedation given, give patient instructions): Generalized Anxiety Disorder (ED) Prescriptions: ALPRAZolam [Xanax] 0.25 mg PO HS PRN 3 Days #12 tab PRN Reason: Anxiety ALPRAZolam [Xanax] 0.25 mg PO HS PRN 3 Days #12 tab PRN Reason: anxiety Referrals: Kem Mohr MD [Primary Care Provider] - 1-2 days
[2023-01-09 08:24] VITALS: BP 123/83; PULSE 74; RESP 16; TEMP 97.7
== END 2023-01-09 08:24 | disposition home or self-care (01) ==
LOC: EC 07:18
DX: F41.9 Anxiety disorder, unspecified (principal); E78.5 Hyperlipidemia, unspecified; Z79.899 Other long term (current) drug therapy; Z88.8 Allergy status to other drugs, medicaments and biological substances; Z90.49 Acquired absence of other specified parts of digestive tract
CPT/HCPCS: 99283

== ENCOUNTER → 2023-06-24 | Outpatient (CLI) | payer MEDICARE, OTHER ==
[2023-06-24 16:28] LABS: Basophils # (A) 0.05 X 10*3/uL (0.00-0.10); Basophils % (A) 0.8 %; Eosinophils # (A) 0.24 X 10*3/uL (0.04-0.35); Eosinophils % (A) 3.7 %; HCT 43.1 % (37.2-46.3); HGB 14.5 d/dL (12.0-15.0); Lymphocytes # (A) 1.94 X 10*3/uL (0.90-5.00); Lymphocytes % (A) 29.8 %; MCHC 33.6 d/dL (32.0-37.0); Mean Platelet Volume 10.9 FL (9.5-12.2); Monocytes # (A) 0.52 X 10*3/uL (0.20-1.00); NRBC Per 100 WBC 0 X 10*3/uL (0.00-0.01); Neutrophils # (A) 3.76 X 10*3/uL (1.80-7.70); Neutrophils % (A) 57.5 %; Platelet Count 221 X 10*3/uL (140-440); RDW 13.1 % (11.5-14.5); WBC 6.52 X 10*3/uL (4.50-10.00)
[2023-06-24 16:31] LABS: ALT 21 U/L (8-44); AST 20 U/L (13-35); Albumin 4.6 d/dL (3.8-4.9); Albumin/Globulin Ratio 2.09 Ratio (1.60-3.17); Alkaline Phosphatase 87 U/L (41-126); BUN/Creat Ratio 34.43 Ratio (12.00-20.00); Blood Urea Nitrogen 24.1 mg/dL (9.0-27.0); Calcium 9.8 mg/dL (8.7-10.3); Carbon Dioxide 19.3 mmol/L (21.6-31.8); Chloride 114 mmol/L (96-109); Chol/HDL Ratio 3.23 Ratio; Globulin 2.2 d/dL (1.6-3.3); Glucose 99 mg/dL (70-110); LDL Cholesterol,Calculated 81.5 mg/dL (0.0-131.0); Potassium 4.4 mmol/L (3.5-5.5); Sodium 150 mmol/L (135-145); Total Bilirubin 0.3 mg/dL (0.3-1.2); Total Protein 6.8 d/dL (6.2-8.2)
== END | disposition home or self-care (01) ==
LOC: LABWHC1 09:27
PROVIDERS: ATTEND Family Medicine
DX: F41.9 Anxiety disorder, unspecified (principal); E78.5 Hyperlipidemia, unspecified
CPT/HCPCS: 36415; 80053; 80061; 82306; 82607; 82746; 83036; 84443; 85025

== ENCOUNTER 2023-11-03 06:11 | Emergency (ER) | payer MEDICARE, OTHER ==
--- NOTE | 2023-11-03 06:52 | ED ---
General Adult HPI - General Chief complaint: Urogenital Stated complaint: UTI Time Seen by Provider: 11/03/23 06:19 Source: patient, RN notes reviewed Mode of arrival: ambulatory Limitations: no limitations - History of Present Illness Initial comments: 63-year-old female presents emergency department complaint of dysuria. Patient states he had symptoms last 2 to 3 days. Patient states that she has constant frequency does denies any flank pain she states he has mild achiness in her back denies fever chills nausea vomit diarrhea constipation denies any other associated symptoms. - Related Data Home Medications Medication Instructions Recorded Confirmed Atorvastatin [Lipitor] 20 mg PO DAILY 05/12/18 05/22/23 PARoxetine HCL 20 mg PO DAILY 05/12/18 05/22/23 nadoloL [Corgard] 20 mg PO DAILY 05/12/18 05/22/23 Omeprazole Magnesium [PriLOSEC OTC] 20 mg PO DAILY 06/13/21 05/22/23 Mirtazapine 7.5 mg PO HS 05/20/23 05/22/23 Previous Rx's Medication Instructions Recorded Cephalexin [Keflex] 500 mg PO Q8HR #21 cap 11/03/23 Phenazopyridine [Pyridium] 200 mg PO TID #6 tablet 11/03/23 Allergies Allergy/AdvReac Type Severity Reaction Status Date / Time iodine Allergy Rash/Hives Verified 11/03/23 06:15 diphenhydramine AdvReac VERY Verified 11/03/23 06:15 [From Benadryl] HYPERACTIVE Review of Systems ROS Statement: Those systems with pertinent positive or pertinent negative responses have been documented in the HPI. ROS Other: All systems not noted in ROS Statement are negative. Past Medical History Past Medical History: GERD/Reflux, Hyperlipidemia Additional Past Medical History / Comment(s): BACTERIAL endocarditis x2. HX PVC'S History of Any Multi-Drug Resistant Organisms: None Reported Past Surgical History: Breast Surgery, Cholecystectomy, Tonsillectomy Additional Past Surgical History / Comment(s): FACE LIFT 01/27/2018. COLONOSCOPY. BILAT BREAST BX-NEG Past Anesthesia/Blood Transfusion Reactions: No Reported Reaction Past Psychological History: Anxiety, Depression Smoking Status: Current every day smoker Past Alcohol Use History: Occasional Past Drug Use History: None Reported - Past Family History Mother Family Medical History: Cancer, Deep Vein Thrombosis (DVT) General Exam Limitations: no limitations General appearance: alert, in no apparent distress Head exam: Present: atraumatic, normocephalic, normal inspection Eye exam: Present: normal appearance, PERRL, EOMI. Absent: scleral icterus, conjunctival injection, periorbital swelling Respiratory exam: Present: normal lung sounds bilaterally. Absent: respiratory distress, wheezes, rales, rhonchi, stridor Cardiovascular Exam: Present: regular rate, normal rhythm, normal heart sounds. Absent: systolic murmur, diastolic murmur, rubs, gallop, clicks GI/Abdominal exam: Present: soft, normal bowel sounds. Absent: distended, tenderness, guarding, rebound, rigid Back exam: Absent: CVA tenderness (R), CVA tenderness (L) Course Vital Signs 11/03/23 06:12 Temperature 97.9 F Pulse Rate 86 Respiratory 20 Rate Blood Pressure 155/92 O2 Sat by Pulse 99 Oximetry Medical Decision Making - Medical Decision Making Was pt. sent in by a medical professional or institution (, PA, PRESS ASSISTANT, urgent care, hospital, or [facility]...) When possible be specific @ -No Did you speak to anyone other than the patient for history (EMS, parent, family, police, friend...)? What history was obtained from this source @ -No Did you review nursing and triage notes (agree or disagree)? Why? @ -I reviewed and agree with nursing and triage notes Were old charts reviewed (outside hosp., previous admission, EMS record, old EKG, old radiological studies, urgent care reports/EKG's, [facility] records)? Report findings @ -No old charts were reviewed Differential Diagnosis (chest pain, altered mental status, abdominal pain women, abdominal pain men, vaginal bleeding, weakness, fever, dyspnea, syncope, headache, dizziness, GI bleed, back pain, seizure, CVA, palpatations, mental health, musculoskeletal)? @ -UTI, dysuria, kidney stone, kidney infection EKG interpreted by me (3pts min.). @ -None X-rays interpreted by me (1pt min.). @ -None done CT interpreted by me (1pt min.). @ -None done U/S interpreted by me (1pt. min.). @ -None done What testing was considered but not performed or refused? (CT, X-rays, U/S, labs)? Why? @ -None What meds were considered but not given or refused? Why? @ -None Did you discuss the management of the patient with other professionals (professionals i.e. , PA, PRESS ASSISTANT, lab, RT, psych nurse, rn social services, front desk auxiliary, teacher, amphibious operations officer, therapeutic case manager)? Give summary @ -No Was smoking cessation discussed for >3mins.? @ -No Was critical care preformed (if so, how long)? @ -No Were there social determinants of health that impacted care today? How? (Homelessness, low income, unemployed, alcoholism, drug addiction, transportation, low edu. Level, literacy, decrease access to med. care, nursing home, rehab)? @ -No Was there de-escalation of care discussed even if they declined (Discuss DNR or withdrawal of care, Hospice)? DNR status @ -No What co-morbidities impacted this encounter? (DM, HTN, Smoking, COPD, CAD, Cancer, CVA, ARF, Chemo, Hep., AIDS, mental health diagnosis, sleep apnea, morbid obesity)? @ -None Was patient admitted / discharged? Hospital course, mention meds given and route, prescriptions, significant lab abnormalities, going to OR and other pertinent info. @ -Discharge patient has evidence of urinary tract infection. She does have notable hematuria more likely from a hemorrhagic cystitis as she has no flank pain or no pain consistent with stone she is advised that she needs to have a recheck of her urinalysis after treatment of UTI to make sure hematuria has resolved Undiagnosed new problem with uncertain prognosis? @ -No Drug Therapy requiring intensive monitoring for toxicity (Heparin, Nitro, Insulin, Cardizem)? @ -No Were any procedures done? @ -No Diagnosis/symptom? @ -[UTI Acute, or Chronic, or Acute on Chronic? @ -Acute Uncomplicated (without systemic symptoms) or Complicated (systemic symptoms)? @ -Uncomplicated Side effects of treatment? @ -[No Exacerbation, Progression, or Severe Exacerbation? @ -No Poses a threat to life or bodily function? How? (Chest pain, USA, MD, pneumonia, PE, COPD, DKA, ARF, appy, cholecystitis, CVA, Diverticulitis, Homicidal, Suicidal, threat to staff... and all critical care pts) @ -No - Lab Data Lab Results 11/03/23 Range/Units 06:32 Urine Color Red Urine Appearance Turbid H (Clear) Urine pH 6.0 (5.0-8.0) Ur Specific [place] 1.020 (1.001-1.035) Urine Protein 2+ H (Negative) Urine Glucose (UA) Negative (Negative) Urine Ketones Negative (Negative) Urine Blood Large H (Negative) Urine Nitrite Negative (Negative) Urine Bilirubin Negative (Negative) Urine Urobilinogen 0.2 (<2.0) mg/dL Ur Leukocyte Esterase Large H (Negative) Urine RBC >182 H (0-5) /hpf Urine WBC >182 H (0-5) /hpf Urine Bacteria Occasional H (None) /hpf Disposition Clinical Impression: Urinary tract infection Disposition: HOME SELF-CARE Condition: Stable Instructions (If sedation given, give patient instructions): Urinary Tract Infection in Women (ED) Additional Instructions: Please return to the Emergency Department if symptoms worsen or any other concerns. Prescriptions: Cephalexin [Keflex] 500 mg PO Q8HR #21 cap Phenazopyridine [Pyridium] 200 mg PO TID #6 tablet Is patient prescribed a controlled substance at d/c from ED?: No Referrals: Kem Mohr MD [Primary Care Provider] - 1-2 days Time of Disposition: 07:19
[2023-11-03 07:06] LABS: Appearance,Urine Turbid (Clear); Color,Urine Red; Glucose,Urine (UA) Negative (Negative); Protein,Urine 2+ (Negative)
[2023-11-03] MEDS: PHENAZOPYRIDINE 200 MG TAB PO ONE (07:06)
[2023-11-03 07:07] LABS: Bilirubin,Urine Negative (Negative); Blood,Urine Large (Negative); Ketones,Urine Negative (Negative); Leukocyte Esterase,Urine Large (Negative); Nitrite,Urine Negative (Negative); Urobilinogen,Urine 0.2 mg/dL (<2.0)
[2023-11-03 07:09] LABS: RBC,Urine >182 /hpf (0-5); WBC,Urine >182 /hpf (0-5)
[2023-11-03 07:11] LABS: Bacteria,Urine Occasional /hpf
[2023-11-03] MEDS: CEPHALEXIN 500 MG CAP PO STA (07:41)
[2023-11-03 07:47] VITALS: BP 137/80; PULSE 78; RESP 18; TEMP 98.1
== END 2023-11-03 07:44 | disposition home or self-care (01) ==
LOC: EC 06:11
DX: N39.0 Urinary tract infection, site not specified (principal); E78.5 Hyperlipidemia, unspecified; K21.9 Gastro-esophageal reflux disease without esophagitis; F32.A Depression, unspecified; F41.9 Anxiety disorder, unspecified; F17.200 Nicotine dependence, unspecified, uncomplicated; Z79.899 Other long term (current) drug therapy; Z88.8 Allergy status to other drugs, medicaments and biological substances; Z91.041 Radiographic dye allergy status; Z90.49 Acquired absence of other specified parts of digestive tract
CPT/HCPCS: 81001; 87086; 99283

== ENCOUNTER → 2024-02-05 | Outpatient (CLI) | payer MEDICARE, OTHER ==
[2024-02-05 15:28] LABS: ALT 21 U/L (8-44); AST 22 U/L (13-35); Albumin 4.5 g/dL (3.8-4.9); Albumin/Globulin Ratio 2.14 Ratio (1.60-3.17); Alkaline Phosphatase 86 U/L (41-126); BUN/Creat Ratio 31.14 Ratio (12.00-20.00); Blood Urea Nitrogen 21.8 mg/dL (9.0-27.0); Calcium 9.8 mg/dL (8.7-10.3); Carbon Dioxide 21.6 mmol/L (21.6-31.8); Chloride 107 mmol/L (96-109); Chol/HDL Ratio 3.06 Ratio; Globulin 2.1 g/dL (1.6-3.3); Glucose 103 mg/dL (70-110); LDL Cholesterol,Calculated 102.1 mg/dL (0.0-131.0); Potassium 4.8 mmol/L (3.5-5.5); Sodium 142 mmol/L (135-145); Total Bilirubin 0.3 mg/dL (0.3-1.2); Total Protein 6.6 g/dL (6.2-8.2)
== END | disposition home or self-care (01) ==
LOC: LABWHC1 10:06
PROVIDERS: ATTEND Internal Medicine Interventional Cardiology
DX: E78.2 Mixed hyperlipidemia (principal)
CPT/HCPCS: 36415; 80053; 80061

== ENCOUNTER → 2024-05-30 | Outpatient (CLI) | payer MEDICARE, OTHER ==
--- NOTE | 2024-05-31 17:18 | MM ---
Reason for Exam: Screening (asymptomatic). Last mammogram was performed 1 year(s) and 5 month(s) ago. Patient History: Menarche at age 9. First Full-Term at age 22. Postmenopausal. 2004, Benign Excisional Biopsy on the left side. 2002, Benign Excisional Biopsy on the right side. Risk Values: Miranda 5 year model risk: 2.5%. NCI Lifetime model risk: 8.8%. Prior Study Comparison: 05/28/2018 Bilateral Screening Mammogram, [facility]. 04/02/2021 Bilateral Screening Mammogram, [facility]. 01/06/2023 Bilateral MG 3D screening mammo w/cad, [facility]. Tissue Density: There are scattered areas of fibroglandular density. Findings: Analyzed By CAD. Unchanged bilateral areas of asymmetric density. There is no suspicious group of microcalcifications or new suspicious mass in either breast. Overall Assessment: Benign, BI-RAD 2 Management: Screening Mammogram of both breasts in 1 year. . Patient should continue monthly self-breast exams. A clinical breast exam by your physician is recommended on an annual basis. This exam should not preclude additional follow-up of suspicious palpable abnormalities. Note on Miranda scores and lifetime risk: 1. A Miranda score greater than 3% is considered moderate risk. If this is the case, consider specialist referral to assess eligibility for a risk reducing agent. 2. If overall lifetime risk for the development of breast cancer is 20% or higher, the patient may qualify for future screening with alternating mammogram and breast MRI. Electronically signed and approved by: Chris Nguyen M.D. Radiologist
== END | disposition home or self-care (01) ==
LOC: RADMAMWWP 14:35
PROVIDERS: ATTEND Family Medicine
DX: Z12.31 Encounter for screening mammogram for malignant neoplasm of breast
CPT/HCPCS: 77063; 77067

== ENCOUNTER → 2024-10-11 | Outpatient (CLI) | payer MEDICARE, OTHER ==
[2024-10-11 15:32] LABS: ALT 15 U/L (8-44); AST 17 U/L (13-35); Albumin 4.4 g/dL (3.8-4.9); Albumin/Globulin Ratio 1.83 Ratio (1.60-3.17); Alkaline Phosphatase 89 U/L (41-126); BUN/Creat Ratio 24.67 Ratio (12.00-20.00); Blood Urea Nitrogen 22.2 mg/dL (9.0-27.0); Calcium 9.5 mg/dL (8.7-10.3); Carbon Dioxide 22.6 mmol/L (21.6-31.8); Chloride 106 mmol/L (96-109); Chol/HDL Ratio 2.83 Ratio; Globulin 2.4 g/dL (1.6-3.3); Glucose 90 mg/dL (70-110); LDL Cholesterol,Calculated 85.1 mg/dL (0.0-131.0); Lipase 37 U/L (14-63); Potassium 4.4 mmol/L (3.5-5.5); Sodium 141 mmol/L (135-145); Total Bilirubin 0.5 mg/dL (0.3-1.2); Total Protein 6.8 g/dL (6.2-8.2)
== END | disposition home or self-care (01) ==
LOC: LABWHC1 12:08
PROVIDERS: ATTEND Internal Medicine Interventional Cardiology
DX: Z13.228 Encounter for screening for other metabolic disorders (principal); I26.99 Other pulmonary embolism without acute cor pulmonale; E78.2 Mixed hyperlipidemia; E78.5 Hyperlipidemia, unspecified; E66.9 Obesity, unspecified; D75.89 Other specified diseases of blood and blood-forming organs
CPT/HCPCS: 36415; 80053; 80061; 82607; 82746; 83690